=== PATIENT | male | born 2000 | race Caucasian/White ===

== ENCOUNTER 2023-02-14 11:00 | Emergency (ER) | payer BC, MEDICAID ==
[~2023-02-14] VITALS: Ht 177.8 cm; Wt 58.3 kg
[2023-02-14 11:27] LABS: BASOPHILS # (AUTO) 0.1 X10'3 (0-0.2); BASOPHILS % (AUTO) 1.1 % (0-1); EOSINOPHILS # (AUTO) 0.3 X10'3 (0-0.9); HEMATOCRIT 43.6 % (42.0-52.0); LYMPHOCYTES # (AUTO) 1.9 X10'3 (1.1-4.8); LYMPHOCYTES % (AUTO) 37.5 % (21-51); MEAN CORPUSCULAR HGB CONC 34.3 g/dL (33.0-36.5); MEAN CORPUSCULAR VOLUME 87.5 FL (78-98); MEAN PLATELET VOLUME 8.8 FL (7.4-10.4); MONOCYTES # (AUTO) 0.5 X10'3 (0-0.9); MONOCYTES % (AUTO) 10.6 % (2-12); NEUTROPHILS # (AUTO) 2.3 X10'3 (1.8-7.7); NEUTROPHILS % (AUTO) 45.8 % (42-75); PLATELET COUNT 175 X10'3 (140-440); RED BLOOD COUNT 4.98 X10'6 (4.70-6.10); RED CELL DISTRIBUTION WIDTH 13.1 % (11.5-14.5)
[2023-02-14 11:42] LABS: ALANINE AMINOTRANSFERASE 16 U/L (12-78); ALBUMIN 4.6 G/DL (3.4-5.0); ALBUMIN/GLOBULIN RATIO 1.6 (1.1-1.5); ALKALINE PHOSPHATASE 63 IU/L (20-180); ANION GAP 10 (8-16); ASPARTATE AMINO TRANSFERASE 11 U/L (10-37); BLOOD UREA NITROGEN 9 MG/DL (7-18); BUN/CREATININE RATIO 11.3 (10.0-20.0); CALCIUM 9.4 MG/DL (8.5-10.1); CHLORIDE 103 MMOL/L (99-107); GLUCOSE 90 MG/DL (70-104); POTASSIUM 3.3 MMOL/L (3.5-5.1); SODIUM 141 MMOL/L (135-145); TOTAL CARBON DIOXIDE 28.1 MMOL/L (24-32); TOTAL PROTEIN 7.4 G/DL (6.4-8.2); eCRCL 121 ML/MIN; eGFR > 90 ML/MIN
[2023-02-14 11:49] LABS: PRO BRAIN NATRIURETIC PEPTIDE < 30 PG/ML (0-125)
[2023-02-14] MEDS ORDERED: ketorolac trometh. 30mg/ml inj. IM ONE (16:10)
[2023-02-14 16:48] LABS: LIPASE 30 U/L (16-77)
[2023-02-14] MEDS ORDERED: potassium Cl 20 mEq SR tablet PO ONE (17:10)
[2023-02-14 18:07] LABS: D-DIMER < 0.19 MG/L FEU (0-0.50)
[2023-02-14 18:24] VITALS: BP 109/63; PULSE 67; RESP 16; TEMP 98; O2SAT 97
== END 2023-02-14 18:27 | disposition home or self-care (01) ==
LOC: ER 11:00
DX: K76.0 Fatty (change of) liver, not elsewhere classified (principal); Z79.899 Other long term (current) drug therapy
CPT/HCPCS: 36415; 71045; 76700; 80053; 83690; 83880; 84484; 85025; 85379; 96372; 99285; J1885

== ENCOUNTER 2024-06-15 13:38 | Emergency (ER) | payer MEDICAID, OTHER ==
[~2024-06-15] VITALS: Ht 177.8 cm; Wt 59.1 kg
[2024-06-15 13:39] VITALS: BP 132/79; PULSE 83; RESP 14; O2SAT 99
--- NOTE | 2024-06-15 14:26 | RADIOLOGY REPORT ---
EXAM: DI HAND, COMPLETE (3VW MIN) CLINICAL INDICATION: BILAT HAND PAIN TECHNIQUE: DI HAND, COMPLETE (3VW MIN) Comparison: None FINDINGS/IMPRESSION: There is no evidence of acute fracture or dislocation. The visualized joint space is well maintained. The alignment is anatomical. There is no radiopaque foreign body.
--- NOTE | 2024-06-15 14:26 | RADIOLOGY REPORT ---
EXAM: DI HAND, COMPLETE (3VW MIN) CLINICAL INDICATION: HAND PAIN TECHNIQUE: DI HAND, COMPLETE (3VW MIN) Comparison: None FINDINGS/IMPRESSION: There is no evidence of acute fracture or dislocation. The visualized joint space is well maintained. The alignment is anatomical. There is no radiopaque foreign body.
[2024-06-15] MEDS: acetaminophen 325mg tablet PO ONE (14:32)
[2024-06-15] MEDS: ibuprofen tablet 400 MG TABLET PO ONE (14:32)
--- NOTE | 2024-06-15 14:59 | Physician Documentation ---
History of Present Illness ~ Chief Complaint: Finger pain Stated Complaint: FINGER INJURY Time Seen by MD: 14:06 OK to notify your PCP?: Yes Primary Medical Doctor: NONE Source: patient, other Mode of Arrival: Dropped Off Exam Limitations: no limitations JOBY Mcarthur is a 23-year-old male presenting after being at work and having a T-bar close down on his left 2nd 3rd and 4th finger as well as his right 2nd and 3rd finger causing pain and swelling. He reports having limited range motion due to pain. He has a small laceration which bleeding has stopped to his 3rd finger and a tiny laceration to his 2nd finger with dry blood on it. He came here directly after work and has not taking any medications for pain private prior to arrival. He denies any numbness or tingling in his fingers. Tetanus within 5 years: No Medication Reconciliation Allergies: Coded Allergies: No Known Allergies (Unverified , 06/15/24) Past Medical History Past Medical History: No Pertinent History Past Surgical History: no surgical history Alcohol Use: None Drug Use: none Lives with: Mother Lives In: Home Occupation: child Physical Exam Vital Signs: RN Vital Signs have been reviewed: Yes, Temperature: 98.2, Source: Oral, Heart Rate: 83, Respiratory Rate: 14, BP: 132/79, Pulse Oximetry: 99, Weight: 59.090 Pulse Oximetry Reflects: adequate oxygenation Physical Exam General: Alert, no apparent distress. HEENT: PERRL, EOMI, no injection, moist mucous membranes. Neck: Full range of motion. Respiratory: Lungs clear, no respiratory distress. Chest: No accessory muscle use. Cardiovascular: Regular rate and rhythm, no murmurs. Gastrointestinal: Soft, nontender, nondistended. Bowels sounds present. Extremities: Normal range of motion, no deformity. Neurologic: Oriented x4. Psychiatric: Normal mood and affect. Skin: Normal color, warm and dry. Laceration #1: Location: Left 2nd finger Type: abrasion Descripton: superficial, bleeding controlled Foreign Body: No Tendon Injury: none Function Distal to Wound: normal, normal capillary refill Laceration #2: Location: Left 3rd finger Type: laceration Descripton: superficial, bleeding controlled Through To: skin Foreign Body: No Tendon Injury: none Function Distal to Wound: normal, normal capillary refill Procedures Laceration Repair : Location: Third left finger Anesthesia: none Prep: betadine, irrigated by nurse, soaked Foreign Body: not identified Repaired: skin Wound Repaired With: Dermabond Splint Applied?: No Tolerated Procedure Well?: yes, no complications Progress Results/Orders Reviewed/noted all lab results: Yes Results/Orders Orders - BRITTANY MARTINEZ Wound Care Orders (06/15/24 14:55) Completed Orders - BRITTANY MARTINEZ Ibuprofen Tablet (Motrin Tablet) (06/15/24 14:20) Acetaminophen 325mg Tablet (Tylenol Tabl (06/15/24 14:20) Tetanus/Pertuss/Diph Acell/Pf (Boostrix (06/15/24 15:05) Medications Received in ER Medications (Trade) Dose Ordered Sig/Trevor Route PRN Reason Start Time Stop Time Status Last Admin Dose Admin (Motrin tablet) 800 mg ONCE ONCE PO 06/15/24 14:20 06/15/24 14:22 DC 06/15/24 14:32 800 MG (Tylenol tablet) 975 mg ONCE ONCE PO 06/15/24 14:20 06/15/24 14:22 DC 06/15/24 14:32 975 MG (Boostrix vaccine syringe) 0.5 ml ONCE ONCE IMVAC 06/15/24 15:05 06/15/24 15:06 DC 06/15/24 15:13 0.5 ML Vital Signs 06/15/24 06/15/24 13:39 15:33 Temp 98.2 98.2 Pulse 83 Resp 14 B/P (MAP) 132/79 Pulse Ox 99 EKG/XRAY/CT/US/VASC/MRI Bone/Soft Tissue X-Ray (Ext.) : Additional Comment Left and right hand x-rays as interpreted by me; no joint effusion, no acute fracture, no soft tissue swelling, no dislocation, or foreign body. Medical Decision Making Findings Blue is a 23-year-old male presenting with bilateral finger pain and swelling to the left 2nd 3rd and 4th finger and the right 2nd and 3rd finger. He does have a small laceration to the left 3rd finger and abrasion to the left 2nd finger. He is unsure of his tetanus vaccine status, so a tetanus vaccine was ordered. I offered him Sharon for his pain relief however she does not have a safe ride home and needs to be able to drive so using shared decision making he opted for Tylenol and ibuprofen which was ordered and given in the department. After soaking the wounds in a Betadine solution, there was no bleeding to the tiny laceration to the 2nd finger and the laceration to the 3rd finger was well approximated and Dermabond was applied. Follow up with his primary care provider next 3 days. He has been informed to watch for signs or symptoms of infection and return she said she had those happened since he is not being sent home with any antibiotics. He should use Tylenol or ibuprofen for pain relief at home and keep hand elevated tonight to help decrease swelling. Return back here for any new or worsening symptoms. General Diff Dx:Considerations: Include: Contusion, Fracture, Hematoma, Neurovascular injury, Sprain Departure Disposition: 01 HOME / SELF CARE / HOMELESS Impression: Primary Impression: Laceration Condition: Stable Discharge Instructions: Laceration Care, Adult, [id number] Additional Instructions: Please keep wounds covered and dry. The skin glue to fall off on its own, do not use any ointment type medications on it as this will cause the glue to fall off faster. You received a tetanus vaccine while here in the department. Please use please use rest, ice, compression or elevation for pain relief. Please follow up with her primary care provider in the next 3 days, and return back here for any new or worsening symptoms such as color change to the tips of your fingers, signs of infection from wounds or pain not controlled by pain medications. As discussed you should take ibuprofen (also called Advil or Motrin) or naproxen (also called a Aleve) for your pain. If you are taking ibuprofen, you can take 600 mg every 6 hours, or 800 mg every 8 hours. If you are taking naproxen, you can take 500 mg every 12 hours. Do not take more than this amount as it can cause kidney problems or bleeding in your stomach. Do not take these medications at the same time as it can increase your risk for these side effects. If you have a history of heart problems or have had uncontrolled blood pressure for a significant period of time she should not take these medications as it can increase your risk for heart attack or stroke. If your pain is not controlled, you can also take acetaminophen (also called Tylenol) as directed. Referrals: NO PRIMARY CARE PROVIDER (PCP) Education Educated: Patient Educated regarding: diagnosis, treatment, prognosis, need for follow up Signature Scribe Signature: . Attestation: Scribed for Brittany Martinez Web Master by Brittany Kent NP . 06/15/24 15:31 BRITTANY MARTINEZ [employer]ER June 15, 2024 14:59
[2024-06-15] MEDS: TETanus/Pertussis (Acell)/Diphther VAC/PF (Tdap-Adult) 0.5ml syringe IMVAC ONE (15:13)
[2024-06-15 15:33] VITALS: TEMP 98.2
== END 2024-06-15 15:35 | disposition home or self-care (01) ==
LOC: ER 13:39
DX: S61.213A Laceration without foreign body of left middle finger without damage to nail, initial encounter (principal); W23.0XXA Caught, crushed, jammed, or pinched between moving objects, initial encounter; Y93.89 Activity, other specified; Y92.89 Other specified places as the place of occurrence of the external cause; Y99.8 Other external cause status
CPT/HCPCS: 12001; 73130; 90471; 90715; 99283; J7030